=== PATIENT | male | born 1950 | race Caucasian/White ===

== ENCOUNTER 2019-03-19 10:31 | Emergency (ER) | payer MEDICARE, OTHER ==
[2019-03-19] MEDS ORDERED: Sodium Chloride 0.9% 10 ML Syringe FLUSH PRN (10:50)
[2019-03-19] MEDS ORDERED: Nitroglycerin 0.4 MG Tab.SL SL PRN (10:52)
[2019-03-19] MEDS ORDERED: Aspirin 81 MG Tab.Chew PO ONE (10:52)
[2019-03-19 10:53] VITALS: PULSE 88
[2019-03-19 10:55] VITALS: BP 130/66
[2019-03-19] MEDS ORDERED: LORazepam 2 MG/ML SDV IVPUSH ONE (11:07)
[2019-03-19] MEDS ORDERED: Heparin Sodium 5,000 Units/ML Vial ONE (11:25)
[2019-03-19] MEDS ORDERED: Nitroglycerin/D5W 25 MG/250 ML BOTTLE ONE (11:25)
[2019-03-19] MEDS ORDERED: Heparin Sodium/0.45% NaCl 500 ML IV SCH (11:30)
--- NOTE | 2019-03-19 11:41 | EDM.PDOC ---
ED HPI GENERAL MEDICAL PROBLEM - General Chief Complaint: Chest Pain Stated Complaint: CHEST PAIN Time Seen by Provider: 03/19/19 10:40 Source of Information: Reports: Patient History Limitations: Reports: No Limitations - History of Present Illness INITIAL COMMENTS - FREE TEXT/NARRATIVE: Patient presented to the ED because of chest pressure over the sternal area. The pain is 6/10,non-radiating, denies any N/V or diaphoresis. The pain started last night when he found out that his . The pain persisted overnight, he took 1 mg of ativan which did help for a while but the chest pain later reoccurred later. He has a h/o HTN,Dyslipidemia,and anxiety. Onset: Today - Related Data Allergies Allergy/AdvReac Type Severity Reaction Status Date / Time Penicillins Allergy Unknown unknown Verified 03/19/19 10:43 Home Meds: Home Meds Aspirin 81 mg PO DAILY 01/28/15 [History] Gemfibrozil 600 mg PO BID 01/28/15 [History] Clopidogrel Bisulfate [Clopidogrel] 75 mg PO DAILY 03/19/19 [History] Losartan Potassium 25 mg PO DAILY 03/19/19 [History] Past Medical History Cardiovascular History: Reports: High Cholesterol, Hypertension, Other (See Below) Other Cardiovascular History: PAD Respiratory History: Reports: Other (See Below) Other Respiratory History: Long time history of smoking - Past Surgical History Other Cardiovascular Surgeries/Procedures: angiogram to left leg, stents placed to the left with right occlusion unable to place stents GI Surgical History: Reports: Other (See Below) Other GI Surgeries/Procedures: Inguinal hernia repair to the left Social & Family History - Tobacco Use Smoking Status *Q: Former Smoker Used Tobacco, but Quit: Yes Month/Year Tobacco Last Used: 09/2017 - Caffeine Use Caffeine Use: Reports: Coffee - Recreational Drug Use Recreational Drug Use: No ED ROS GENERAL - Review of Systems Review Of Systems: See Below Constitutional: Reports: No Symptoms HEENT: Reports: No Symptoms Respiratory: Reports: No Symptoms Cardiovascular: Reports: Chest Pain Endocrine: Reports: No Symptoms GI/Abdominal: Reports: No Symptoms : Reports: No Symptoms Musculoskeletal: Reports: No Symptoms Skin: Reports: No Symptoms Neurological: Reports: No Symptoms Psychiatric: Reports: No Symptoms Immunologic: Reports: No Symptoms ED EXAM, GENERAL - Physical Exam Exam: See Below Exam Limited By: No Limitations General Appearance: Alert, WD/WN, No Apparent Distress Ears: Normal External Exam, Normal Canal, Hearing Grossly Normal Nose: Normal Inspection, Normal Mucosa, No Blood Throat/Mouth: Normal Inspection, Normal Lips, Normal Teeth, No Airway Compromise Head: Atraumatic, Normocephalic, Facial Swelling Neck: Normal Inspection, Supple, Non-Tender Respiratory/Chest: No Respiratory Distress, Lungs Clear, Normal Breath Sounds, No Accessory Muscle Use Cardiovascular: Normal Peripheral Pulses, Regular Rate, Rhythm, No Edema, No Gallop, No JVD, No Murmur, No Rub GI/Abdominal: Normal Bowel Sounds, Soft, Non-Tender, No Organomegaly, No Distention, No Abnormal Bruit, No Mass (Male) Exam: No Hernia, Normal Inspection, Normal Prostate Rectal (Males) Exam: Rectal Fissure Back Exam: Normal Inspection Extremities: Normal Inspection, Normal Range of Motion Neurological: Alert, Oriented, CN II-XII Intact, Normal Cognition Course - Vital Signs Text/Narrative:: labs/EKG-discussed with patient and family EKG-NSR ? STEMI Trop-.4.467 asa 324 mg po x1 NTG 0.4 mg SL Heparin drip per ACS protocol -5000U bolus Heparin maintenance drip @ 1000 U/hr case discussed with Dr who agreed with the above plan Last Recorded V/S: Last Vital Signs Temp 36.5 C 03/19/19 10:35 Pulse 88 03/19/19 10:35 Resp 18 03/19/19 10:35 BP 130/66 03/19/19 10:55 Pulse Ox 98 03/19/19 10:35 - Orders/Labs/Meds Orders: Active Orders 24 hr Category Date Time Status INR,PT,PROTHROMBIN TIME [COAG] Stat Lab 03/19/19 10:59 Ordered PTT,PARTIAL THROMBOPLSTIN TIME [COAG] Stat Lab 03/19/19 10:59 Ordered Heparin Sodium/0.45% NaCl [Heparin 25,000 Units in 1/2 Med 03/19/19 11:30 Active NS 500 ML] 500 ml IV ASDIRECTED Nitroglycerin [Nitrostat] Med 03/19/19 10:52 Active 0.4 mg SL Q5M PRN Sodium Chloride 0.9% [Saline Flush] Med 03/19/19 10:50 Active 10 ml FLUSH ASDIRECTED PRN Saline Lock Insert [OM.PC] Routine Oth 03/19/19 10:50 Ordered EKG 12 Lead [EK] Routine Ther 03/19/19 10:50 Ordered Medication Orders Heparin Sodium/Sodium Chloride (Heparin 25,000 Units In 1/2 Ns 500 Ml) 500 mls @ 20 mls/hr IV ASDIRECTED ALAN Last Admin: 03/19/19 11:33 Dose: 20 mls/hr Nitroglycerin (Nitrostat) 0.4 mg SL Q5M PRN PRN Reason: Chest Pain Last Admin: 03/19/19 10:55 Dose: 0.4 mg Sodium Chloride (Saline Flush) 10 ml FLUSH ASDIRECTED PRN PRN Reason: Keep Vein Open Labs: Laboratory Tests 03/19/19 03/19/19 03/19/19 Range/Units 10:50 10:50 10:50 WBC 10.3 (4.5-12.0) X10-3/uL RBC 4.22 L (4.30-5.75) x10(6)uL Hgb 12.7 L (13.5-17.8) g/dL Hct 37.4 (30.0-51.3) % MCV 88.7 (80-96) fL MCH 30.2 (27.7-33.6) pg MCHC 34.0 (32.2-35.4) g/dL RDW 13.0 (11.5-15.5) % Plt Count 168 (125-369) X10(3)uL MPV 9.2 (7.4-10.4) fL Neut % (Auto) 76.5 (46-82) % Lymph % (Auto) 17.2 (13-37) % [place] % (Auto) 5.0 (4-12) % Eos % (Auto) 1 (1.0-5.0) % Baso % (Auto) 0 (0-2) % Neut # (Auto) 7.9 (1.6-8.3) # Lymph # (Auto) 1.8 (0.6-5.0) # [place] # (Auto) 0.5 (0.0-1.3) # Eos # (Auto) 0.1 (0.0-0.8) # Baso # (Auto) 0.0 (0.0-0.2) # Sodium 136 (135-145) mmol/L Potassium 3.9 (3.5-5.3) mmol/L Chloride 101 (100-110) mmol/L Carbon Dioxide 23 (21-32) mmol/L BUN 25 H (7-18) mg/dL Creatinine 1.3 (0.70-1.30) mg/dL Est Cr Clr Drug Dosing TNP Estimated GFR (MDRD) 55 L (>60) BUN/Creatinine Ratio 19.2 (9-20) Glucose 169 H (80-116) mg/dL Calcium 9.1 (8.6-10.2) mg/dL Total Bilirubin 0.5 (0.1-1.3) mg/dL AST 29 H (5-25) IU/L ALT 24 (12-36) U/L Alkaline Phosphatase 85 (56-112) IU/L Troponin I 4.767 H* (<0.017-0.056) ng/mL Total Protein 7.6 (6.0-8.0) g/dL Albumin 3.9 (3.2-4.6) g/dL Globulin 3.7 g/dL Albumin/Globulin Ratio 1.1 Meds: Medications Generic Name Dose Route Start Last Admin Trade Name Freq PRN Reason Stop Dose Admin Heparin Sodium/Sodium Chloride 500 mls @ 20 mls/hr 03/19/19 11:30 03/19/19 11 :33 Heparin 25,000 Units In 1/2 Ns 500 Ml IV 20 mls/hr ASDIRECTED ALAN Administration Nitroglycerin 0.4 mg 03/19/19 10:52 03/19/19 10:55 Nitrostat SL 0.4 mg Q5M PRN Administration Chest Pain Sodium Chloride 10 ml 03/19/19 10:50 Saline Flush FLUSH ASDIRECTED PRN Keep Vein Open Discontinued Medications Generic Name Dose Route Start Last Admin Trade Name Freq PRN Reason Stop Dose Admin Aspirin 324 mg 03/19/19 10:52 03/19/19 11:00 Aspirin PO 03/19/19 10:53 243 mg ONETIME ONE Administration Heparin Sodium (Porcine) Confirm 03/19/19 11:25 03/19/19 11:30 Heparin Sodium Administered 03/19/19 11:26 5,000 units Dose Administration 5,000 units .ROUTE .STK-MED ONE Nitroglycerin/Dextrose Confirm 03/19/19 11:25 03/19/19 11:33 Nitroglycerin 25 Mg/D5w 250 Ml Administered 03/19/19 11:26 3 mls/hr Dose Administration 25 mg in 250 mls @ as directed .ROUTE .STK-MED ONE Lorazepam 1 mg 03/19/19 11:07 03/19/19 11:30 Ativan IVPUSH 03/19/19 11:08 1 mg ONETIME ONE Administration Departure - Departure Time of Disposition: 11:00 Disposition: DC/Tfer to Acute Hospital 02 Reason for Transfer *Q: Primary PCI Indicated (no) Condition: Good Clinical Impression: Acute myocardial infarction Referrals: Narayan Ding MD [Primary Care Provider] - Forms: ED Department Discharge - My Orders Last 24 Hours: My Active Orders 03/19/19 10:50 Sodium Chloride 0.9% [Saline Flush] 10 ml FLUSH ASDIRECTED PRN Saline Lock Insert [OM.PC] Routine EKG 12 Lead [EK] Routine 03/19/19 10:52 Nitroglycerin [Nitrostat] 0.4 mg SL Q5M PRN 03/19/19 10:59 INR,PT,PROTHROMBIN TIME [COAG] Stat PTT,PARTIAL THROMBOPLSTIN TIME [COAG] Stat 03/19/19 11:30 Heparin Sodium/0.45% NaCl [Heparin 25,000 Units in 1/2 NS 500 ML] 500 ml IV ASDIRECTED - Assessment/Plan Last 24 Hours: My Active Orders 03/19/19 10:50 Sodium Chloride 0.9% [Saline Flush] 10 ml FLUSH ASDIRECTED PRN Saline Lock Insert [OM.PC] Routine EKG 12 Lead [EK] Routine 03/19/19 10:52 Nitroglycerin [Nitrostat] 0.4 mg SL Q5M PRN 03/19/19 10:59 INR,PT,PROTHROMBIN TIME [COAG] Stat PTT,PARTIAL THROMBOPLSTIN TIME [COAG] Stat 03/19/19 11:30 Heparin Sodium/0.45% NaCl [Heparin 25,000 Units in 1/2 NS 500 ML] 500 ml IV ASDIRECTED
== END 2019-03-19 12:00 ==
LOC: FB.ED 10:31
DX: I21.9 Acute myocardial infarction, unspecified (principal); I10 Essential (primary) hypertension; Z88.0 Allergy status to penicillin; Z87.891 Personal history of nicotine dependence; Z79.82 Long term (current) use of aspirin; Z79.01 Long term (current) use of anticoagulants; Z79.899 Other long term (current) drug therapy
CPT/HCPCS: 36415; 80053; 84484; 85025; 85610; 85730; 93005; 96374; 96375; 99285; A9270; J1644; J2060; J3490

== ENCOUNTER 2020-03-11 09:11 | Day surgery (SDC) | payer MEDICARE, OTHER ==
[2020-03-11] MEDS ORDERED: Propofol 200 MG/20 ML SDV IV ONE (09:12)
[2020-03-11] MEDS ORDERED: Midazolam 1 MG/ML 2 ML SDV IV ONE (09:12)
[2020-03-11] MEDS ORDERED: Sodium Chloride 0.9% 10 ML Syringe FLUSH PRN (09:15)
[2020-03-11] MEDS ORDERED: Lactated Ringers 1,000 ML IV SCH (09:15)
--- NOTE | 2020-03-11 11:36 | PCM.OPNOTE ---
- General Post-Op/Procedure Note Date of Surgery/Procedure: 03/11/20 Operative Procedure(s): scope with cold forcep biopsy Findings: transverse colon polyp hyperplastic polyps of rectum Pre Op Diagnosis: hx of colon polyps Post-Op Diagnosis: transverse colon polyp. hyperplastic polyps of rectum Anesthesia Technique: MAC Primary Surgeon: Rusty Be Anesthesia Provider: Lisa Harris Pathology: transverse colon polyp hyperplastic polyps of rectum Complications: None Condition: Good Free Text/Narrative:: see dictation [id number]
[2020-03-11 12:21] VITALS: BP 143/68; PULSE 56
--- NOTE | 2020-03-11 13:05 | OR ---
DATE OF OPERATION: 03/11/2020 SURGEON: Rusty Be MD PROCEDURE PERFORMED: Colonoscopy with cold forceps biopsy. PREOPERATIVE DIAGNOSIS: Personal history of colon polyps. POSTOPERATIVE DIAGNOSIS: Transverse colon polyp and hyperplastic polyps of the rectum. INDICATIONS FOR PROCEDURE: This is a 69-year-old white male who presents for a routine followup colonoscopy. He has a personal history of polyps of the colon. He was offered and accepted C-scope. DESCRIPTION OF PROCEDURE: After an excellent IV sedation was administered, digital rectal exam was performed. No marked abnormality was noted. The flexible colonoscope was inserted and advanced through the cecum. The prep was excellent. The following findings were noted: Ascending colon, unremarkable. Transverse colon: In the proximal transverse colon behind a fold was an adenomatous-appearing polyp. This was biopsied and sent for permanent with cold biopsy forceps. Descending colon was unremarkable. Sigmoid was unremarkable. With rectum insufflated, there were multiple hyperplastic polyps seen. They became much more prominent on aspiration of the air. Editor House Organ biopsies were taken of these to confirm the diagnosis. The scope was removed. Patient tolerated the procedure well. Results will be sent to the patient via letter. /[id number] /MODL
== END 2020-03-11 12:19 | disposition home or self-care (01) ==
LOC: FB.SDS 09:11
PROVIDERS: ATTEND Surgery
DX: Z12.11 Encounter for screening for malignant neoplasm of colon (principal); D12.3 Benign neoplasm of transverse colon; K62.1 Rectal polyp; K21.9 Gastro-esophageal reflux disease without esophagitis; E78.5 Hyperlipidemia, unspecified; N18.30 Chronic kidney disease, stage 3 unspecified; I50.22 Chronic systolic (congestive) heart failure; I25.2 Old myocardial infarction; Z79.899 Other long term (current) drug therapy; Z79.82 Long term (current) use of aspirin; Z88.0 Allergy status to penicillin; Z98.890 Other specified postprocedural states; Z87.891 Personal history of nicotine dependence
CPT/HCPCS: 00811-QZ; 88305; J2250; J2704; J7120